=== PATIENT | female | born 2000 | race Caucasian/White ===

== ENCOUNTER 2024-04-25 11:41 | Emergency (ER) | payer MEDICAID, SELFPAY ==
[2024-04-25] VITALS (7 sets, daily range): BP systolic 92–124; BP diastolic 52–64; PULSE 64–82; RESP 18; TEMP 36.4–37.1; O2SAT 98–100
--- NOTE | 2024-04-25 12:01 | CT_ITS ---
FINAL REPORT CLINICAL HISTORY: fall head and sacral injury/ patient states she hit her forehead. COMPARISON: None FINDINGS: Axial images of the head were obtained without contrast. Coronal reformatted images were also obtained.This study was performed with techniques to keep radiation doses as low as reasonably achievable (ALARA). Individualized dose reduction techniques using automated exposure control or adjustment of mA and/or kV according to the patient's size were employed. There is no evidence of intracranial hemorrhage or mass. The ventricular size is within normal limits. There is no evidence of shift of the midline structures. No abnormal extra axial fluid collection is identified. There is a 25 mm lytic lesion in the occipital skull of uncertain etiology. This may represent hemangioma or other mass. IMPRESSION: No acute intracranial abnormality. Occipital skull lytic lesion of uncertain etiology. This may represent hemangioma or other mass. This could be further evaluated with CT or bone scan. Reviewed, Interpreted and Dictated by Michael Hoffman III, MD Transcribed by Frances Kelly Authenticated and [facility]
--- NOTE | 2024-04-25 12:01 | CT_ITS ---
FINAL REPORT TECHNIQUE: Axial images through the pelvis were performed by computed tomography. Sagittal and coronal reconstruction images were performed. This study was performed with techniques to keep radiation doses as low as reasonably achievable (ALARA). Individualized dose reduction techniques using automated exposure control or adjustment of mA and/or kV according to the patient's size were employed. CLINICAL HISTORY: fall, sacral pain COMPARISON: None FINDINGS: There is an acute appearing mildly displaced fracture at the 5th sacral segment. No dislocation identified. No significant degenerative changes identified. No soft tissue abnormality. IMPRESSION: Acute 5th sacral segment fracture. Reviewed, Interpreted and Dictated by Michael Hoffman III, MD Transcribed by Frances Kelyl Authenticated and [facility]
--- NOTE | 2024-04-25 12:16 | HMH.EDGENADL ---
Discharge Plan Disposition Patient Disposition: Home, Self-Care Prescriptions Prescriptions: New ondansetron 4 mg tablet,disintegrating 4 mg PO Q6H PRN (Reason: nausea and vomiting) Qty: 14 0RF oxycodone 5 mg tablet 5 mg PO Q6H PRN (Reason: pain) Qty: 12 0RF lidocaine 5 % adhesive patch,medicated 1 patch topical DAILY Qty: 30 0RF Rx Instructions: leave on most painful area for up to 12 hrs Referrals Follow up/Referrals: Bebe Almeida APRN [Primary Care Provider] - See instructions Oleg Fallon DO [Staff Physician] - See instructions Activity Restrictions/Add. Instructions Additional Instructions/Restrictions: The CT scan of your head revealed an indeterminant area at the back of your skull that was described as a lytic lesion. The cause of this is uncertain at this time. Recommend calling PCP and following up with this for an outpatient MRI versus bone scan as soon as possible. Follow-up with orthopedic surgery regarding sacral fracture. Take Tylenol 1000 mg and ibuprofen 400 mg every 6 hours for pain. Take oxycodone for breakthrough pain. Use Zofran as needed for nausea and vomiting. Please return to the emerged part with any new, concerning, worsening symptoms. Clinical Impressions Clinical Impression: Fall Qualifiers: Encounter type: initial encounter Qualified Code(s): W19.XXXA - Unspecified fall, initial encounter Closed sacral fracture Qualifiers: Encounter type: initial encounter Zone of sacrum fracture: unspecified portion of sacrum Qualified Code(s): S32.10XA - Unspecified fracture of sacrum, initial encounter for closed fracture Print Language Print Language: Greek Discharge ED Provider: Edenilson Cruz General Adult HPI <Edenilson Cruz MD - Last Filed: 04/25/24 15:34> General Chief complaint: PAIN Stated complaint: ao 04/25, pain in [place] Time Seen by Provider: 04/25/24 11:49 Mode of Arrival: Wheelchair Source of Information: Patient Limitations: No Limitations Description of Symptoms (Recalled from ER Triage Doc. by RN): PT C/O GENERALIZED PAIN ALL OVER AND TO LEFT BUTTOCKS AFTER FALLING DOWN SEVERAL STEPS LAST NIGHT. DENIES PAIN TO HEAD OR NECK, DENIES LOC History of Present Illness HPI narrative: This is an otherwise healthy 23-year-old female who presents after a fall down a flight of stairs last night. States that she was drinking alcohol and fell, striking the front of her head. No loss of consciousness. Also states that she landed on her sacrum and has been reporting significant pain since then. Also reports headache and nausea that she feels is related to her hangover. States that she is have difficulty walking due to the pain in her sacrum. No numbness or tingling of lower extremities. Denies neck pain. Related Data Previous Rx's ?Medication ?Instructions ?Recorded lidocaine 5 % topical patch 1 patch topical DAILY #30 ea 04/25/24 ondansetron 4 mg disintegrating 4 mg PO Q6H PRN nausea and 04/25/24 tablet vomiting #14 tabs oxycodone 5 mg tablet 5 mg PO Q6H PRN pain #12 tabs 04/25/24 Allergies Allergy/AdvReac Type Severity Reaction Status Date / Time No Known Allergies Allergy Verified 04/25/24 12:08 COUNT INCLUDES THE [facility] <Edenilson Cruz MD - Last Filed: 04/25/24 15:34> COUNT INCLUDES THE [facility] Disclaimer: The information contained in this section may have been updated after the patient was seen, as this information can be updated by other users. Social History (Updated 04/25/24 @ 15:34 by Edenilson Cruz MD) Smoking Status: Current every day smoker alcohol intake: current alcohol intake frequency: other current occupational status: employed Travel in the last 8 weeks: None <Edenilson Cruz MD - Last Filed: 04/25/24 15:34> ROS Obtained: Yes All systems reviewed & no additional complaints except as documented Physical Exam <Edenilson Cruz MD - Last Filed: 04/25/24 15:34> General General appearance: alert and in no apparent distress Head Head exam: other (L frontal hematoma) Eye Eye exam: Present normal appearance, PERRL and EOMI Neck Neck exam: Present normal inspection and full ROM; Absent tenderness Chest Chest inspection: Present normal inspection; Absent tenderness Respiratory Respiratory exam: Present normal lung sounds bilaterally; Absent respiratory distress Cardiovascular Cardiovascular exam: Present regular rate and normal rhythm Abdominal Exam Abdominal exam: Present soft and distention; Absent tenderness, guarding or rebound Extremities Exam Extremities exam: Present other (Sacral tenderness) Neurological Exam Neurological exam: Present alert and oriented X3 Skin Skin exam: Present warm and dry Medical Decision Making <Edenilson Cruz MD - Last Filed: 04/25/24 15:34> Medical Records Medical records reviewed: Yes I reviewed the patient's medical records. Screening: Per USPSTF and CDC recommendations, given the prevalence of disease in our region, it is our hospital?s policy to screen for HIV and viral Hepatitis for all patients aged 18 and over and those with ongoing risk factors. Tyshawn Inquiry Pt receiving controlled substance: No Vital Signs: 04/25/24 11:43 04/25/24 12:36 04/25/24 14:16 Temperature 97.6 F Temperature Source Oral Pulse Rate 72 72 Pulse Rate [Radial] 80 Respiratory Rate 18 Blood Pressure 99/52 L Blood Pressure [Right Arm] 104/62 L Blood Pressure Mean [Right Arm] 76 Blood Pressure Source [Right Arm] Automatic Cuff Blood Pressure Position [Right Arm] Sitting 02 Sat by Pulse Oximetry 99 100 100 Oxygen Delivery Method Room Air Room Air 04/25/24 15:30 04/25/24 16:00 04/25/24 16:45 Temperature Temperature Source Pulse Rate 82 82 69 Pulse Rate [Radial] Respiratory Rate Blood Pressure 111/58 L 111/61 92/54 L Blood Pressure [Right Arm] Blood Pressure Mean [Right Arm] Blood Pressure Source [Right Arm] Blood Pressure Position [Right Arm] 02 Sat by Pulse Oximetry 100 99 98 Oxygen Delivery Method Room Air Room Air Room Air Lab Data Lab Results 04/25/24 12:17: Serum HCG, Qual Negative Orders (Tests/Meds): ED MEDICATIONS Discontinued Medications Generic Name Dose Route Start Last Admin Trade Name Génesis PRN Reason Stop Dose Admin Acetaminophen 1,000 mg 04/25/24 12:01 04/25/24 12:18 Acetaminophen 500mg Tab PO 04/25/24 12:02 1,000 mg ONCE ONE Administration Hydromorphone HCl 0.5 mg 04/25/24 15:10 04/25/24 15:16 Hydromorphone 2mg/Ml Syringe IV 04/25/24 15:11 0.5 mg ONCE ONE Administration Lactated Ringer's 1,000 mls @ 999 mls/hr 04/25/24 12:01 04/25/24 12:18 Lactated Ringer's 1000 Ml Bag IV 04/25/24 13:01 999 mls/hr .Q1H1M ONE Administration Ibuprofen 400 mg 04/25/24 12:01 04/25/24 12:18 Ibuprofen 400 Mg Tablet PO 04/25/24 12:02 400 mg ONCE ONE Administration Lidocaine 1 each 04/25/24 16:25 04/25/24 16:26 Lidocaine 5% Transdermal Patch TP 04/25/24 16:26 1 each ONCE ONE Administration Ondansetron HCl 4 mg 04/25/24 12:01 04/25/24 12:19 Ondansetron 4mg/2ml Vial IV 04/25/24 12:02 4 mg ONCE ONE Administration ORDERS Category Date Time Status CT bony pelvis Stat Cat Scan 04/25/24 12:[address] head/brain wo con Stat Cat Scan 04/25/24 12:01 Completed HCG Qualitative, Serum Stat Lab 04/25/24 12:17 Completed Medical Decision Narrative: In summary, this 23-year-old female presents to the emergency department today with head injury and sacral pain since fall doiwn stairs last night while drinking alcohol. On initial evaluation patient is afebrile, hemodynamically stable, nontoxic-appearing, GCS 15. Differential diagnosis includes but is not limited to skull fracture, intracranial hemorrhage, long bone fracture, pelvic fracture. Based on these concerns, I ordered CT head, CT bony pelvis, test. C-spine injury ruled out clinically by Nexus criteria. Patient received 1 L of lactated Ringer's, Tylenol, ibuprofen, and Zofran for treatment of pain over. CT imaging personally interpreted demonstrates no acute intracranial hemorrhage and mildly displaced lower sacral fracture. Radiology reported this to be at segment 5. No foraminal involvement. had no neurological symptoms. Was ambulatory however had exacerbation of pain and was administered Dilaudid for analgesia. Written prescription for oxycodone as this is likely nonoperative. Gave referral to follow-up with orthopedic surgery as soon as possible. Additionally, radiology report notes incidental finding of apparent lytic lesion in patient's occipital skull. Differential including hemangioma or other mass. Plan to discuss with [facility] as a consult. At the time of shift change, care handed off to Dr. Mesa pending [facility] consult. <Brandon Mesa MD - Last Filed: 04/25/24 16:53> Vital Signs: 04/25/24 11:43 04/25/24 12:36 04/25/24 14:16 Temperature 97.6 F Temperature Source Oral Pulse Rate 72 72 Pulse Rate [Radial] 80 Respiratory Rate 18 Blood Pressure 99/52 L Blood Pressure [Right Arm] 104/62 L Blood Pressure Mean [Right Arm] 76 Blood Pressure Source [Right Arm] Automatic Cuff Blood Pressure Position [Right Arm] Sitting 02 Sat by Pulse Oximetry 99 100 100 Oxygen Delivery Method Room Air Room Air 04/25/24 15:30 04/25/24 16:00 04/25/24 16:45 Temperature Temperature Source Pulse Rate 82 82 69 Pulse Rate [Radial] Respiratory Rate Blood Pressure 111/58 L 111/61 92/54 L Blood Pressure [Right Arm] Blood Pressure Mean [Right Arm] Blood Pressure Source [Right Arm] Blood Pressure Position [Right Arm] 02 Sat by Pulse Oximetry 100 99 98 Oxygen Delivery Method Room Air Room Air Room Air Lab Data Lab Results 04/25/24 12:17: Serum HCG, Qual Negative Orders (Tests/Meds): ED MEDICATIONS Discontinued Medications Generic Name Dose Route Start Last Admin Trade Name Génesis PRN Reason Stop Dose Admin Acetaminophen 1,000 mg 04/25/24 12:01 04/25/24 12:18 Acetaminophen 500mg Tab PO 04/25/24 12:02 1,000 mg ONCE ONE Administration Hydromorphone HCl 0.5 mg 04/25/24 15:10 04/25/24 15:16 Hydromorphone 2mg/Ml Syringe IV 04/25/24 15:11 0.5 mg ONCE ONE Administration Lactated Ringer's 1,000 mls @ 999 mls/hr 04/25/24 12:01 04/25/24 12:18 Lactated Ringer's 1000 Ml Bag IV 04/25/24 13:01 999 mls/hr .Q1H1M ONE Administration Ibuprofen 400 mg 04/25/24 12:01 04/25/24 12:18 Ibuprofen 400 Mg Tablet PO 04/25/24 12:02 400 mg ONCE ONE Administration Lidocaine 1 each 04/25/24 16:25 04/25/24 16:26 Lidocaine 5% Transdermal Patch TP 04/25/24 16:26 1 each ONCE ONE Administration Ondansetron HCl 4 mg 04/25/24 12:01 04/25/24 12:19 Ondansetron 4mg/2ml Vial IV 04/25/24 12:02 4 mg ONCE ONE Administration ORDERS Category Date Time Status CT bony pelvis Stat Cat Scan 04/25/24 12:[address] head/brain wo con Stat Cat Scan 04/25/24 12:01 Completed HCG Qualitative, Serum Stat Lab 04/25/24 12:17 Completed Medical Decision Narrative: In summary, this 23-year-old female presents to the emergency department today with head injury and sacral pain since fall doiwn stairs last night while drinking alcohol. On initial evaluation patient is afebrile, hemodynamically stable, nontoxic-appearing, GCS 15. Differential diagnosis includes but is not limited to skull fracture, intracranial hemorrhage, long bone fracture, pelvic fracture. Based on these concerns, I ordered CT head, CT bony pelvis, test. C-spine injury ruled out clinically by Nexus criteria. Patient received 1 L of lactated Ringer's, Tylenol, ibuprofen, and Zofran for treatment of pain over. CT imaging personally interpreted demonstrates no acute intracranial hemorrhage and mildly displaced lower sacral fracture. Radiology reported this to be at segment 5. No foraminal involvement. had no neurological symptoms. Was ambulatory however had exacerbation of pain and was administered Dilaudid for analgesia. Written prescription for oxycodone as this is likely nonoperative. Gave referral to follow-up with orthopedic surgery as soon as possible. Additionally, radiology report notes incidental finding of apparent lytic lesion in patient's occipital skull. Differential including hemangioma or other mass. Plan to discuss with [facility] as a consult. At the time of shift change, care handed off to Dr. Mesa pending [facility] consult. Moshe: I assumed primary responsibility for this patient after signout from previous physician. On my evaluation, patient in mild pain, but feeling a lot better. She was able to ambulate and void spontaneously. Conversation had with patient regarding images. They were independently interpreted by me, significant for what appears to be hemangioma or occipital condyle as well as low sacral fracture through the body without obvious neuroforaminal involvement. [facility] was contacted and case was discussed at length, agreeable to transfer as trauma for spine fracture. Images were sent electronically, in the meantime, conversation had with patient regarding transfer. Stating that she would prefer not to be transferred, but if needed, she would be. 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 [facility] was contacted again and case was discussed hemangioma consultation was deferred given no acute change, however sacral spine injury was discussed with orthopedics. Recommended conservative management with mild pain control and follow-up as needed. Lidocaine patch placed for pain management. Because patient at baseline without signs or symptoms of clinical decompensation, deemed appropriate for discharge. Results were relayed to patient who voiced understanding and were agreeable to outpatient management and follow up. I discussed my clinical impression with patient and answered all questions. At this time, the evidence for any other entities in the differential is insufficient to warrant any further testing or ED observation. This was explained as well. Advisory was given that persistent or worsening symptoms require further evaluation. I confirmed the understanding of this discussion. Critical Care <Edenilson Cruz MD - Last Filed: 04/25/24 15:34> Critical Care Time Critical Care Time: No
[2024-04-25] MEDS: ACETAMINOPHEN 500MG TAB 1000 MG PO (12:18)
[2024-04-25] MEDS: LACTATED RINGERS 1000ML 1,000 ML 999 ML IV (12:18)
[2024-04-25] MEDS: IBUPROFEN 400 MG TABLET PO (12:18)
[2024-04-25] MEDS: ONDANSETRON 4MG/2ML VIAL 4 MG IV (12:19)
[2024-04-25 13:10] LABS: HCG Qualitative, Serum Negative (Negative)
--- NOTE | 2024-04-25 13:14 | PC.NURSE ---
Pt to CT at this time
--- NOTE | 2024-04-25 13:30 | PC.NURSE ---
Pt back in room from Rad
--- NOTE | 2024-04-25 14:16 | PC.NURSE ---
Rounded on pt. No needs voiced at this time. Call light within reach.
[2024-04-25] MEDS: HYDROMORPHONE 2MG/ML SYRINGE 0.5 MG IV (15:16)
--- NOTE | 2024-04-25 15:44 | PC.NURSE ---
Called [facility] per Dr Cruz to speak with Neuro about a consult with this pt.
[2024-04-25] MEDS: LIDOCAINE 5% TRANSDERMAL PATCH 1 EACH TP (16:26)
--- NOTE | 2024-04-25 16:53 | PC.NURSE ---
DR SANCHEZ AT BEDSIDE TO UPDATE PT
== END 2024-04-25 17:11 | disposition home or self-care (01) ==
PROVIDERS: Emergency Provider Student in an Organized Health Care Education/Training Program; PCP Nurse Practitioner
DX: S32.10XA Unspecified fracture of sacrum, initial encounter for closed fracture (principal); R52 Pain, unspecified; R11.0 Nausea; S09.90XA Unspecified injury of head, initial encounter; W10.8XXA Fall (on) (from) other stairs and steps, initial encounter; Y93.89 Activity, other specified; Y92.9 Unspecified place or not applicable
CPT/HCPCS: 70450; 72192; 84703; 96360; 96361; 96374; 96375; 99284; J1170; J2405; J7120